=== PATIENT | male | born 1970 | race Caucasian/White ===

== ENCOUNTER 2017-02-11 17:29 | Emergency (ER) | payer OTHER ==
[~2017-02-11] VITALS: Ht 185.4 cm; Wt 93.0 kg
[2017-02-11 17:32] VITALS: Ht 185.4 cm; Wt 93.0 kg
[2017-02-11] MEDS ORDERED: METF1000 PO (19:08)
[2017-02-11] MEDS ORDERED: ENAL5TAB PO (19:09)
[2017-02-11] MEDS ORDERED: HYDROmorphONE 1 MG/ML SYG IV STA (19:11)
[2017-02-11] MEDS ORDERED: ONDANSETRON 4 MG INJ IV STA (19:11)
[2017-02-11 19:23] LABS: ABNORMAL IP MESSAGE 1; BASOPHILS % 0.1 % (0.0-2.0); HEMATOCRIT 35.5 % (42.0-52.0); HEMOGLOBIN 12.3 g/dl (14.0-18.0); LYMPHOCYTES # 0.6 10^3/ul (0.8-2.9); LYMPHOCYTES % 4.7 % (15.0-51.0); MEAN CORPUSCULAR HEMOGLOBIN 30.4 pg (29.0-33.0); MEAN CORPUSCULAR HGB CONC 34.6 g/dl (32.0-37.0); MEAN CORPUSCULAR VOLUME 87.7 fl (82.0-101.0); MEAN PLATELET VOLUME 10.4 fl (7.4-10.4); MONOCYTE # 0.8 10^3/ul (0.3-0.9); MONOCYTES % 6.1 % (0.0-11.0); NEUTROPHILS % 88.1 % (39.0-77.0); PLATELET COUNT 213 10^3/UL (140-415); POSITIVE DIFF @See below; RED BLOOD COUNT 4.05 10^6/ul (4.70-6.10); RED CELL DISTRIBUTION WIDTH 12.3 % (11.5-14.5); WHITE BLOOD COUNT 12.5 10^3/ul (4.8-10.8)
[2017-02-11] MEDS ORDERED: ERTAPENEM SODIUM 1 GM in SOD CHLORIDE 0.9% 100 ML IVPB ONE (19:30)
[2017-02-11 19:41] LABS: ALBUMIN 4.3 g/dl (3.3-4.9); ALBUMIN/GLOBULIN RATIO 1.43; BILIRUBIN,INDIRECT 0.4 mg/dl (0-1.1); BILIRUBIN,TOTAL 0.4 mg/dl (0.2-1.3); CALCIUM 9.4 mg/dl (8.4-10.2); CREATININE 0.87 mg/dl (0.61-1.24); POTASSIUM 3.9 mmol/L (3.5-5.1); TOTAL PROTEIN 7.3 g/dl (6.1-8.1)
--- NOTE | 2017-02-11 19:56 | RADRPT ---
PROCEDURE: US DVT. CLINICAL INDICATION: Right lower extremity pain and swelling. TECHNIQUE: Multiple longitudinal and transverse images of the right lower extremity veins were obt ained with crouch scale and color Doppler imaging. 2D grayscale measurements with compression, color Doppler flow, and augmentation was performed. The calf veins were interrogated as well. COMPARISON: No prior studies are available for comparison. FINDINGS: The right common femoral, superficial femoral and popliteal veins are normally compressible througho ut. Color flow demonstrates normal filling of the vessel. Normal waveforms are visualized and ther e is normal response to augmentation. The calf veins are visualized and are equally unremarkable. IMPRESSION: 1. No evidence of a deep vein thrombosis involving the right lower extremity. RPTAT: HH .Prerna Diop MD, Date Time Electronically viewed and signed by .Prerna Diop MD, MD on 02/11/2017 19:55 .N/
[2017-02-11] MEDS ORDERED: ACETAMINOPHEN 500 MG TAB PO STA (21:45)
--- NOTE | 2017-02-11 21:48 | ERA ---
ER Documentation Chief Complaint Date/Time DATE: 02/11/17 TIME: 21:46 Chief Complaint RIGHT FOOT PAIN, REDNESS TODAY, + CHILLS HX OF DM HPI This is a 46-year-old diabetic with history of cellulitis in the past complaining of right foot swelling pain redness onset today with fever. The patient denies any trauma. The patient says he has had multiple episodes of cellulitis in the same area before. Pain is described as dull and constant without radiation. He said the symptoms began this morning and gradually progressed over the course of this afternoon and this evening. No cough dysuria chest pain abdominal pain or shortness of breath ROS All systems reviewed and are negative except as per history of present illness. Medications Home Meds Reported Medications Enalapril Maleate* (Enalapril Maleate*) 5 Mg Tablet, 5 MG PO DAILY, TAB NEEDED 02/11/17 Metformin Hcl* (Metformin Hcl*) 1,000 Mg Tablet, 1000 MG PO WITH BREAKFAST DINNE , #60 TAB 02/11/17 Allergies Allergies: Uncoded Allergies: UNKNOWN ANTIBIOTIC (Allergy, Mild, RASHES, 02/11/17) PMhx/Soc History of Surgery: No Anesthesia Reaction: No Hx Neurological Disorder: No Hx Respiratory Disorders: No Hx Cardiac Disorders: Yes (HIGH CHOL) Hx Psychiatric Problems: No Hx Miscellaneous Medical Probl: Yes (RECCURENT CELLULITIS TO RIGHT LEG.; DM) Hx Alcohol Use: No Hx Substance Use: No Hx Tobacco Use: No Smoking Status: Never smoker FmHx Family History: No coronary disease Physical Exam Vitals Vital Signs Date Time Temp Pulse Resp B/P Pulse Ox O2 Delivery O2 Flow Rate FiO2 02/11/17 17:32 101.6 124 20 136/88 100 Physical Exam Const: Well-developed, well-nourished Head: Atraumatic, normocephalic Eyes: Normal Conjunctiva, PERRLA, EOMI, normal sclera, no nystagmus ENT: Normal External Ears, Nose and Mouth, moist mucus membranes. Neck: Full range of motion. No meningismus, no lymphadenopathy. Resp: Clear to auscultation bilaterally, no wheezing, rhonchi, rales Cardio: Regular rate and rhythm, no murmurs, S1 S2 present Abd: Soft, non tender x 4, non distended. Normal bowel sounds, no guarding or rebound, no pulsitile abdominal masses or bruits Skin: No petechiae erythema to the right foot with irregular faint pink rash to the foot and distal tip, no ecchymosis , no maculopapular rash Back: No midline or flank tenderness Ext: No cyanosis, right foot edema, FROM x 4, normal inspection, neurovascularly intact x 4 Neur: Awake and alert, STR 5/5 x 4, sensation intact x 4, no focal findings, cerebellum intact Psych: Normal Mood and Affect Result Diagram: 02/11/17190902/11/171909 Results 24 hrs Laboratory Tests Test 02/11/17 19:10 White Blood Count 12.510^3/ul Red Blood Count 4.0510^6/ul Hemoglobin 12.3g/dl Hematocrit 35.5% Mean Corpuscular Volume 87.7fl Mean Corpuscular Hemoglobin 30.4pg Mean Corpuscular Hemoglobin Concent 34.6g/dl Red Cell Distribution Width 12.3% Platelet Count 07015^3/UL Mean Platelet Volume 10.4fl Neutrophils % 88.1% Lymphocytes % 4.7% Monocytes % 6.1% Eosinophils % 0.0% Basophils % 0.1% Nucleated Red Blood Cells % 0.0/100WBC Neutrophils # 11.010^3/ul Lymphocytes # 0.610^3/ul Monocytes # 0.810^3/ul Eosinophils # 0.010^3/ul Basophils # 0.010^3/ul Nucleated Red Blood Cells # 0.010^3/ul Sodium Level 138mmol/L Potassium Level 3.9mmol/L Chloride Level 95mmol/L Carbon Dioxide Level 28mmol/L Anion Gap 19 Blood Urea Nitrogen 18mg/dl Creatinine 0.87mg/dl Glucose Level 155mg/dl Calcium Level 9.4mg/dl Total Bilirubin 0.4mg/dl Direct Bilirubin 0.00mg/dl Indirect Bilirubin 0.4mg/dl Aspartate Amino Transf (AST/SGOT) 17IU/L Alanine Aminotransferase (ALT/SGPT) 47IU/L Alkaline Phosphatase 42IU/L Total Protein 7.3g/dl Albumin 4.3g/dl Globulin 3.00g/dl Albumin/Globulin Ratio 1.43 Current Medications Medications (Trade) Dose Ordered Sig/Kajal Route PRN Reason Start Time Stop Time Status Last Admin Dose Admin Hydromorphone HCl (Dilaudid) 1 mg ONCE STAT IV 02/11/17 19:11 02/11/17 19:13 DC 02/11/17 19:38 Ondansetron HCl 4 mg 4 mg ONCE STAT IV 02/11/17 19:11 02/11/17 19:13 DC 02/11/17 19:37 Ertapenem/Sodium Chloride (Invanz/NS) 100 ml @ 200 mls/hr ONCE ONCE IVPB 02/11/17 19:30 02/11/17 19:59 DC 02/11/17 21:00 Procedures/MDM PROCEDURE: US DVT. CLINICAL INDICATION: Right lower extremity pain and swelling. TECHNIQUE: Multiple longitudinal and transverse images of the right lower extremity veins were obtained with crouch scale and color Doppler imaging. 2D grayscale measurements with compression, color Doppler flow, and augmentation was performed. The calf veins were interrogated as well. COMPARISON: No prior studies are available for comparison. FINDINGS: The right common femoral, superficial femoral and popliteal veins are normally compressible throughout. Color flow demonstrates normal filling of the vessel. Normal waveforms are visualized and there is normal response to augmentation. The calf veins are visualized and are equally unremarkable. IMPRESSION: 1. No evidence of a deep vein thrombosis involving the right lower extremity. RPTAT: HH .Prerna Diop MD, Date Time Electronically viewed and signed by .Prerna Diop MD, on 02/11/2017 19: 55 .N/ CC: DANISHA SCHMID DO Patient received IV antibiotics. And blood cultures. Patient admitted for cellulitis to the right foot with fever and elevated white blood count and diabetic. Departure Diagnosis: Primary Impression: Cellulitis of right leg Additional Impression: Fever Qualified Code: R50.9 - Fever, unspecified fever cause Condition: Stable DANISHA SCHMID DO Feb 11, 2017 21:48
[2017-02-12 00:08] VITALS: BP 127/77; PULSE 78; RESP 20; TEMP 99.9
== END 2017-02-12 00:10 | disposition short-term general hospital (02) ==
LOC: E/R 17:29
DX: L03.115 Cellulitis of right lower limb (principal); R50.9 Fever, unspecified; E11.9 Type 2 diabetes mellitus without complications; Z79.84 Long term (current) use of oral hypoglycemic drugs
CPT/HCPCS: 80053; 85025; 87040; 93971; J1170; J1335; J2405; Z7610; 36415; 96374; 96375

== ENCOUNTER 2019-01-15 16:28 | Emergency (ER) | payer OTHER ==
[~2019-01-15] VITALS: Ht 182.9 cm; Wt 93.9 kg
[~2019-01-15 16:28] MED LIST: ENAL5TAB PO; METF100010 PO
[2019-01-15 16:33] VITALS: Ht 182.9 cm; Wt 93.9 kg
--- NOTE | 2019-01-15 18:47 | ERD ---
ER Documentation Chief Complaint Chief Complaint lt foot pain , piece of wood stuck in foot HPI 48-year-old male, with history of diabetes presents the emergency department, complaining of severe left foot pain after stepping in a large piece of wood that went through his shoe penetrating deep into the skin. The pain is 10 out of 10, the patient is unable to move his toes. Unknown last tetanus vaccine. ROS All systems reviewed and are negative except as per history of present illness. Medications Home Meds Active Scripts Hydrocodone/Acetaminophen ([place] 5-325 Tablet) 1 Each Tablet, 1 TAB PO BID PRN for PAIN, #10 TAB Prov:CHASE ALICEA MD 01/15/19 Sulfamethoxazole/Trimethoprim* (Bactrim Ds* Tablet) 1 Each Tablet, 1 TAB PO BID, #14 TAB Prov:CHASE ALICEA MD 01/15/19 Cephalexin* (Keflex*) 500 Mg Capsule, 500 MG PO QID for 7 Days, CAP Prov:CHASE ALICEA MD 01/15/19 Reported Medications Enalapril Maleate* (Enalapril Maleate*) 5 Mg Tablet, 5 MG PO DAILY, TAB NEEDED 02/11/17 Metformin Hcl* (Metformin Hcl*) 1,000 Mg Tablet, 1000 MG PO WITH BREAKFAST DINNE, #60 TAB 02/11/17 Allergies Allergies: Uncoded Allergies: UNKNOWN ANTIBIOTIC (Allergy, Mild, RASHES, 02/11/17) PMhx/Soc History of Surgery: No Anesthesia Reaction: No Hx Neurological Disorder: No Hx Respiratory Disorders: No Hx Cardiac Disorders: Yes (HIGH CHOL) Hx Psychiatric Problems: No Hx Miscellaneous Medical Probl: Yes (RECCURENT CELLULITIS TO RIGHT LEG.; DM) Hx Alcohol Use: No Hx Substance Use: No Hx Tobacco Use: No Smoking Status: Never smoker FmHx Family History: diabetes; No coronary disease Physical Exam Vitals Vital Signs Date Temp Pulse Resp B/P (MAP) Pulse Ox O2 O2 Flow FiO2 Time Delivery Rate 01/15/19 98.1 90 18 146/70 97 16:33 (95) Physical Exam Moderate distress due to pain, vital signs stable. Head: Atraumatic Eyes: Normal Conjunctiva ENT: Normal External Ears, Nose and Mouth. Neck: Full range of motion. No meningismus. Resp: Clear to auscultation bilaterally Cardio: Regular rate and rhythm, no murmurs Abd: Soft, non tender, non distended. Normal bowel sounds Skin: No petechiae or rashes Back: No midline or flank tenderness Ext: Left foot with 1 cm open wound over the lateral aspect, below the fifth toe with a palpable subcutaneous linear foreign body. no cyanosis, or edema Neur: Awake and alert Psych: Normal Mood and Affect Results 24 hrs Current Medications Medications Dose Sig/Kajal Start Time Status Last (Trade) Ordered Route PRN Stop Time Admin Dose Reason Admin Diphtheria/ 0.5 ml ONCE ONCE 01/15/19 DC 01/15/19 Tetanus/Acell IM* 19:00 18:53 Pertussis 01/15/19 19:01 (Adacel) DIAGNOSTIC IMAGING REPORT Patient: ARTURO EVANS : 1970 Age: 48 Sex: M MR #: [id number] DOS: 01/15/19 1846 Ordering MD: CHASE ALICEA MD Location: [facility] Room/Bed: PROCEDURE: XR foot CLINICAL INDICATION: Pain. Removal of foreign body from the fifth toe. TECHNIQUE: AP, oblique and lateral views of the left foot were performed. COMPARISON: None. FINDINGS: There is normal mineralization and alignment. No fracture or osseous lesion is identified. The joints are normal. Soft tissue swelling is present. No r adiopaque foreign body. IMPRESSION: No fracture, dislocation or radiopaque foreign body. Soft tissue swelling. RPTAT: PP. .Felecia Green MD, MD Date Time Electronically viewed and signed by .Felecia Green MD, MD on 01/15/2019 19:35 .F/ CC: CHASE ALICEA MD Procedures/MDM During the visit, the patient was evaluated for other possible injuries including fracture, nerve/tendon/ ligament damage, no signs of acute local infection, less likely systemic infectious process. Before the procedure, I explained to the patient the possible risk and benefits of the attempt to remove the foreign body, included but not limited to failure to retrieve the object, bleeding, scar, infection. The patient consented and the procedure was performed. Foreign body removal procedure: Location: Left foot Anesthesia: 5 cc of lidocaine with epinephrine was infiltrated. Technique: A laceration tray was requested, scissors were was used to carefully dissect the area until the foreign body was visualized then, with a needle hold er a 4 cm large wood splinter was successfully removed without complications. ER return precautions including infection, worsening of pain were discussed with patient. Follow-up in the next 2 days with the primary care provider. Disclaimer: Inadvertent spelling and grammatical errors are likely due to EHR/dictation software use and do not reflect on the overall quality of patient care. Also, please note that the electronic time recorded on this note does not necessarily reflect the actual time of the patient encounter. Departure Diagnosis: Primary Impression: Foreign body in left foot Condition: Stable Additional Instructions: Thank you very much for allowing us to participate in your care. Your health and safety is our top priority at [facility]. The evaluation in the emergency department has been done to rule out an acute emergency. Chronic, [id number] conditions may have not been evaluated; therefore, you need to follow up with a primary care provider in the next 48h. If symptoms persist, worsen or new symptoms develop, then patient should return to the ED immediately. Call your primary care doctor TOMORROW for an appointment during the next 2-4 days and bring all the information provided. Have prescriptions filled and follow precisely the directions on the label. If the symptoms get worse and your provider is unavailable, return to the Emergency Department immediately. CHASE ALICEA MD Jan 15, 2019 18:47
[2019-01-15] MEDS ORDERED: DIPHTH/TET/ACEL PERTUSS (ADULT) 0.5 ML VIAL IM* ONE (19:00)
[2019-01-15] MEDS ORDERED: SULF1TAB31 PO (19:07)
[2019-01-15] MEDS ORDERED: CEPH-443 PO (19:07)
[2019-01-15] MEDS ORDERED: HYDR-4011 PO (19:07)
[2019-01-15 20:00] VITALS: BP 134/81; PULSE 85; RESP 18
== END 2019-01-15 20:01 | disposition home or self-care (01) ==
LOC: FTE 16:28
DX: S91.342A Puncture wound with foreign body, left foot, initial encounter (principal); E11.9 Type 2 diabetes mellitus without complications; W45.8XXA Other foreign body or object entering through skin, initial encounter; Y92.9 Unspecified place or not applicable; Z23 Encounter for immunization
CPT/HCPCS: 28190; 73630; 90471; 90715; Z7502